=== PATIENT | female | born 1990 | race American Indian/Alaskan Native ===

== ENCOUNTER 2016-08-04 00:32 | Emergency (ER) | payer SELFPAY ==
[2016-08-04] MEDS ORDERED: MOTRIN PO ONE (02:28)
--- NOTE | 2016-08-04 05:24 | Emergency Department Report ---
HPI - General Chief Complaint: Upper Respiratory Infection Time Seen by Provider: 08/04/16 04:39 - HPI HPI: Patient here complaining of sore throat for 4 days bodyache chest tightness with coughing. She says she's been having nasal congestion and facial stuffiness for 2 weeks. She says she's tried multiple [id number] medication but is not working. She denies any fever or chills. Denies any difficulty breathing. Patient has no medical problem and her cardiac risk or is no her EKG shows sinus rhythm with some PACs at 82 BPM. Patient says she's had similar problem in the past because she has allergies to pollen. She says her sore throat is 9 out of 10. Denies any drooling or difficulty swallowing. ED Past Medical Hx - Past Medical History Previous Medical History?: No - Surgical History Past Surgical History?: No - Family History Family history: no significant - Social History Smoking Status: Never Smoker Substance Use Type: None - Medications Home Medications: Home Medications Medication Instructions Recorded Confirmed Last Taken Type Azithromycin [Zithromax Z-CRYSTAL] 250 mg PO DAILY #6 tab 08/04/16 Unknown Rx Cetirizine HCl [ZyrTEC] 10 mg PO QDAY #14 capsule 08/04/16 Unknown Rx Fluticasone [Flonase] 1 spray NS QDAY #1 bottle 08/04/16 Unknown Rx Ibuprofen [Motrin] 600 mg PO Q8H PRN #15 tablet 08/04/16 Unknown Rx predniSONE [Deltasone] 50 mg PO QDAY #5 tab 08/04/16 Unknown Rx ED Review of Systems ROS: Stated complaint: CHEST PAIN, COUGH, SORE THROAT Other details as noted in HPI Comment: All other systems reviewed and negative Constitutional: denies: chills, fever Eyes: denies: eye pain, eye discharge ENT: throat pain, congestion. denies: ear pain Respiratory: cough. denies: shortness of breath, SOB with exertion, SOB at rest , stridor, wheezing Cardiovascular: chest pain (pain with coughing.). denies: palpitations, edema, syncope Gastrointestinal: denies: abdominal pain, nausea, vomiting Musculoskeletal: myalgia. denies: back pain, arthralgia Skin: denies: rash Neurological: denies: headache, numbness, paresthesias, confusion, abnormal gait , vertigo Physical Exam - Physical Exam Vital Signs: Vital Signs 08/04/16 02:16 Temperature 98.1 F Pulse Rate 104 H Respiratory 18 Rate Blood Pressure 139/92 Blood Pressure 139/92 [Left] O2 Sat by Pulse 100 Oximetry Vital Signs 08/04/16 08/04/16 02:16 05:33 Temperature 98.1 F 98.2 F Pulse Rate 104 H 92 H Respiratory 18 20 Rate Blood Pressure 139/92 Blood Pressure 139/92 142/85 [Left] O2 Sat by Pulse 100 99 Oximetry General: This is a 26-year-old female well-nourished well-developed in no acute distress. Physical Exam: Head: Normocephalic atraumatic Mouth: Moist, no pharyngeal exudate or erythema. Uvula is midline and oral airway is patent. No facial swelling. No peritonsillar abscesses. Nose: Congested with erythema to mucosa. Clear Drainage. Maxillary and frontal sinuses tender to palpate Neck: Supple, no C-spine tenderness, no tracheal deviation. Nontender to palpate. no adenopathy Ears: Bilateral TMs congested without erythema. Bilateral EAC without any redness swelling or drainage. Abdomen: Soft, nontender to palpate in all quadrants, normal bowel sounds in all quadrant and negative CVA tenderness bilaterally. Eyes: Bilateral pupils equal and reactive to light, bilateral EOM intact. Bilateral sclera and conjunctiva without injection. Normal accommodation. No nystagmus Lungs: Clear to auscultate bilaterally no rhonchi wheezes or rales. Normal work of breathing extremity; No CCE. +2 pulses. No neurovascular compromise Cardiovascular: S1-S2, regular rate rhythm. No murmurs. Skin: clean Dry and intact no rash no lesions Psych: Normal mood and behavior ED Course Vital Signs 08/04/16 02:16 Temperature 98.1 F Pulse Rate 104 H Respiratory 18 Rate Blood Pressure 139/92 Blood Pressure 139/92 [Left] O2 Sat by Pulse 100 Oximetry Vital Signs 08/04/16 08/04/16 02:16 05:33 Temperature 98.1 F 98.2 F Pulse Rate 104 H 92 H Respiratory 18 20 Rate Blood Pressure 139/92 Blood Pressure 139/92 142/85 [Left] O2 Sat by Pulse 100 99 Oximetry - Reevaluation(s) Reevaluation #1: 08/04/16 06:15 Patient had an uneventful ED stay. ED Medical Decision Making - Medical Decision Making ED course: Here complaining of nasal congestion and coughing with chest pain with coughing. Her cardiac risk or is low. Patient with acute sinusitis and will be placed on antibiotic, Flonase and Zyrtec. I Discussed this with patient and she voices understanding. Patient discharged home in stable condition with prescription for Z-Crystal,prednisone,motrin, Flonase and Zyrtec. Critical care attestation.: If time is entered above; I have spent that time in minutes in the direct care of this critically ill patient, excluding procedure time. ED Disposition Clinical Impression: Cough Acute sinusitis Qualifiers: Sinusitis location: maxillary Recurrence: not specified as recurrent Qualified Code(s): J01.00 - Acute maxillary sinusitis, unspecified Pharyngitis Qualifiers: Pharyngitis/tonsillitis etiology: unspecified etiology Qualified Code(s): J02.9 - Acute pharyngitis, unspecified Disposition: DISCHARGED TO HOME OR SELFCARE Is pt being admited?: No Does the pt Need Aspirin: No Condition: Stable Instructions: Pharyngitis (ED), Sinusitis (ED), Acute Cough (ED) Additional Instructions: Flush your nostrils out with saline nasal wash Take antibiotic as prescribed. Follow-up with primary care physician in 3-5 days and if you do not have one then he can follow-up with [facility] Prescriptions: Azithromycin [Zithromax Z-CRYSTAL] 250 mg PO DAILY #6 tab Cetirizine HCl [ZyrTEC] 10 mg PO QDAY #14 capsule Fluticasone [Flonase] 1 spray NS QDAY #1 bottle Ibuprofen [Motrin] 600 mg PO Q8H PRN #15 tablet PRN Reason: Pain predniSONE [Deltasone] 50 mg PO QDAY #5 tab Referrals: PRIMARY CARE,MD [Primary Care Provider] - 3-5 Days [facility] [Outside] - 3-5 Days Forms: Work/School Release Form(ED)
[2016-08-04 05:34] VITALS: BP 142/85
== END 2016-08-04 06:59 | disposition home or self-care (01) ==
LOC: ED 00:32
DX: J01.00 Acute maxillary sinusitis, unspecified (principal); J02.9 Acute pharyngitis, unspecified
CPT/HCPCS: 93005; 93010; 99282